=== PATIENT | female | born 1940 | race Caucasian/White ===

== ENCOUNTER 2017-01-30 16:27 | Inpatient (IN) | payer OTHER, MEDICARE ==
[2017-01-30 17:29] VITALS: BMI 32.3
--- NOTE | 2017-01-30 18:59 | CP.PCM.HP ---
History of Present Illness - History of Present Illness History of Present Illness: 76 yo female with history of RA, Osteoporoses and HTN had TKR of the left knee after failing conservative management at [facility] on 01/27/2017. Pt is transferred to acute rehab to continue management and PT Present on Admission - Present on Admission Any Indicators Present on Admission: No History of DVT/PE: No History of Uncontrolled Diabetes: No Urinary Catheter: No Decubitus Ulcer Present: No Review of Systems - Review of Systems All systems: reviewed and no additional remarkable complaints except (aside from those mentioned above, 12 point system review were negative by me) Past Patient History - Past Social History Smoking Status: Never Smoked Chewing Tobacco Use: No Cigar Use: No Alcohol: None Drugs: Denies - CARDIAC Hx Hypertension: Yes - PULMONARY Hx Respiratory Disorders: No - NEUROLOGICAL Hx Neurological Disorder: No - HEENT Hx HEENT Problems: No - RENAL Hx Chronic Kidney Disease: No - ENDOCRINE/METABOLIC Hx Endocrine Disorders: No - HEMATOLOGICAL/ONCOLOGICAL Hx Blood Disorders: No - INTEGUMENTARY Hx Dermatological Problems: No - MUSCULOSKELETAL/RHEUMATOLOGICAL Hx Arthritis: Yes Hx Degenerative Joint Disease: Yes Hx Osteoarthritis: Yes Hx Osteoporosis: Yes Hx Rheumatoid Arthritis: Yes - GASTROINTESTINAL Hx Gastrointestinal Disorders: No - GENITOURINARY/GYNECOLOGICAL Hx Genitourinary Disorders: No - PSYCHIATRIC Hx Psychophysiologic Disorder: No - SURGICAL HISTORY Hx Orthopedic Surgery: Yes (right TKR, last year) - ANESTHESIA Hx Anesthesia: Yes Hx Anesthesia Reactions: No Meds Allergies/Adverse Reactions: Allergies Allergy/AdvReac Type Severity Reaction Status Date / Time No Known Allergies Allergy Verified 12/24/15 07:54 Physical Exam - Constitutional Appears: No Acute Distress - Head Exam Head Exam: ATRAUMATIC - Eye Exam Eye Exam: absent: Scleral icterus - ENT Exam ENT Exam: Mucous Membranes Moist - Neck Exam Neck exam: Negative for: Meningismus - Respiratory Exam Respiratory Exam: absent: Rhonchi, Wheezes, Respiratory Distress - Cardiovascular Exam Cardiovascular Exam: REGULAR RHYTHM, +S1, +S2 - GI/Abdominal Exam GI & Abdominal Exam: Soft. absent: Tenderness - Rectal Exam Rectal Exam: Deferred - Extremities Exam Extremities exam: Negative for: full ROM (left knee post TKR) - Neurological Exam Neurological exam: Alert, Oriented x3 - Psychiatric Exam Psychiatric exam: Normal Affect - Skin Skin Exam: Dry, Intact Assessment & Plan (1) Status post total knee replacement, left Status: Acute Comment: admit to subacute rehab. refer to PT/OT. pain management. orthopedist prefer ASA 325mg PO daily for prophylaxis (2) HTN (hypertension) Status: Acute Comment: BP stable. continue HCTZ, Losartan
[2017-01-30] MEDS ORDERED: [UNRECOGNIZED DRUG - OTHER] PO SCH (19:30)
[2017-01-30] MEDS ORDERED: CALCIUM PO SCH (19:30)
[2017-01-30] MEDS ORDERED: VIT B12 PO SCH (19:30)
[2017-01-30] MEDS ORDERED: PYRIDOXINE PO SCH (19:30)
[2017-01-30] MEDS: oxyCODONE 10 mg ER Tab (oxyCONTIN) PO SCH (22:14)
[2017-01-31 07:40] LABS: BASO # 0.1 K/uL (0.0-0.2); BASO % 0.8 % (0.0-2.0); EOS # 0.2 K/uL (0.0-0.7); EOS % 1.3 % (0.0-4.0); HEMATOCRIT 36.8 % (34.0-47.0); LYMPH # 1.6 K/uL (1.0-4.3); LYMPH % 10.7 % (20.0-40.0); MEAN CELL VOLUME 87.9 fl (81.0-99.0); MEAN CORPUSCULAR HEMOGLOBIN 28.8 pg (27.0-31.0); MEAN CORPUSCULAR HGB CONC 32.8 g/dL (33.0-37.0); MEAN PLATELET VOLUME 9.8 fl (7.2-11.7); MONO # 1.1 K/uL (0.0-0.8); MONO % 7.6 % (0.0-10.0); NEUT % 79.6 % (50.0-75.0); NRBC % 0.1 % (0.0-0.0); RED CELL DISTRIBUTION WIDTH 13.4 % (11.5-14.5)
[2017-01-31 08:10] LABS: BLOOD UREA NITROGEN 10 mg/dl (7-17); CALCIUM 8.9 mg/dL (8.4-10.2); CARBON DIOXIDE 25 mmol/L (22-30); CHLORIDE 102 mmol/L (98-107); GFR AFRICAN-AMERICAN > 60; GLUCOSE,RANDOM 106 mg/dL (65-105); POTASSIUM 3.3 MMOL/L (3.6-5.0); SODIUM 143 mmol/l (132-148)
[2017-01-31] MEDS: oxyCODONE 10 mg ER Tab (oxyCONTIN) PO SCH ×2 (09:00→21:28)
[2017-01-31] MEDS: Pantoprazole 40 mg EC Tab PO SCH (09:03)
[2017-01-31] MEDS: Multivitamin With Minerals Tab PO SCH (09:03)
--- NOTE | 2017-01-31 11:23 | CP.PCM.PN ---
Subjective - Date & Time of Evaluation Date of Evaluation: 01/31/17 Time of Evaluation: 11:22 - Subjective Subjective: left TKR revision Objective - Vital Signs/Intake and Output Vital Signs (last 24 hours): Temp Pulse Resp BP Pulse Ox 97.3 F L 81 18 174/74 H 96 01/31/17 07:27 01/31/17 09:03 01/31/17 07:27 01/31/17 09:03 01/31/17 07:27 - Medications Medications: Current Medications Acetaminophen (Tylenol 325mg Tab) 325 mg PO PRN PRN PRN Reason: for pain Ascorbic Acid (Vitamin C 500 Mg Tab) 500 mg PO ONCE [facility] Aspirin (Aspirin) 325 mg PO DAILY [facility] Last Admin: 01/31/17 09:06 Dose: 325 mg Celecoxib (Celebrex) 200 mg PO DAILY [facility] Last Admin: 01/31/17 09:03 Dose: 200 mg Docusate Sodium (Colace) 100 mg PO TID [facility] Last Admin: 01/31/17 09:02 Dose: 100 mg Gabapentin (Neurontin) 300 mg PO BIDPC [facility] Last Admin: 01/31/17 09:03 Dose: 300 mg Home Med (Calcium/Vit B12/Fa/Pyridoxine [Folic Acid-Vit B6-Vit B12 Tab]) 1 each PO ONCE [facility] Hydrochlorothiazide (Microzide) 12.5 mg PO DAILY [facility] Last Admin: 01/31/17 09:03 Dose: 12.5 mg Losartan Potassium (Cozaar) 50 mg PO DAILY [facility] Last Admin: 01/31/17 09:03 Dose: 50 mg Multivitamins/Minerals (Therapeutic-M Tab) 1 tab PO DAILY [facility] Last Admin: 01/31/17 09:03 Dose: 1 tab Oxycodone HCl (Oxycontin Extended Release Tab) 10 mg PO Q12 [facility] Stop: 02/02/17 21:01 Last Admin: 01/31/17 09:00 Dose: 10 mg Pantoprazole Sodium (Protonix Ec Tab) 40 mg PO DAILY [facility] Last Admin: 01/31/17 09:03 Dose: 40 mg Sennosides (Senokot Tab) 8.6 mg PO ACHS [facility] Last Admin: 01/31/17 06:32 Dose: 8.6 mg - Labs Labs: 01/31/17 05:30 01/31/17 05:30 Physiatry Overall Plan of Care - Overall Plan of Care Estimated Length of Stay in Weeks: 2 Rehab Impairment: Mobility, Gait, Balance, Coordination Etiologic Diagnosis: Hip/Knee Surgery Rehab/Medical Prognosis: Fair - Anticipated Interventions Physical Therapy:: Yes Occupational Therapy:: Yes Speech Therapy:: No Recreational Therapy:: Yes - Therapy Goals Bed Mobility: Supervision Ambulation: Supervision Functional Positional Changes:: Supervision - Discharge Plan Identification of Barriers to Discharge: Home Situation Discharge Destination: Home
--- NOTE | 2017-01-31 11:25 | CP.PCM.CON ---
History of Present Illness - History of Present Illness History of Present Illness: Dr Alvarado coverage for Dr Archibald PMR consultation on Sarah Lagunas, born 1940, who has been admitted to [facility] for acute inpatient rehabilitation following a left TKR revision. She has also undergone a right TKR revision in April 2016. Post op stable Low pain tolerance Review of Systems - Constitutional Constitutional: absent: Anorexia, Chills - EENT Ears: absent: Disequilibrium, Dizziness Nose/Mouth/Throat: absent: Nasal Congestion - Cardiovascular Cardiovascular: absent: Chest Pain - Respiratory Respiratory: absent: Dyspnea - Gastrointestinal Gastrointestinal: absent: Belching, Constipation - Musculoskeletal Musculoskeletal: Stiffness. absent: Back Pain, Neck Pain, Numbness, Radiating Pain into Limb - Integumentary Integumentary: Other (left knee incision) - Psychiatric Psychiatric: Anxiety Past Patient History - Past Social History Smoking Status: Never Smoked Chewing Tobacco Use: No Cigar Use: No Alcohol: None Drugs: Denies Home Situation {Lives}: Alone - CARDIAC Hx Hypertension: Yes - PULMONARY Hx Respiratory Disorders: No - NEUROLOGICAL Hx Neurological Disorder: No - HEENT Hx HEENT Problems: No - RENAL Hx Chronic Kidney Disease: No - ENDOCRINE/METABOLIC Hx Endocrine Disorders: No - HEMATOLOGICAL/ONCOLOGICAL Hx Blood Disorders: No - INTEGUMENTARY Hx Dermatological Problems: No - MUSCULOSKELETAL/RHEUMATOLOGICAL Hx Arthritis: Yes Hx Degenerative Joint Disease: Yes Hx Osteoarthritis: Yes Hx Osteoporosis: Yes Hx Rheumatoid Arthritis: Yes - GASTROINTESTINAL Hx Gastrointestinal Disorders: No - GENITOURINARY/GYNECOLOGICAL Hx Genitourinary Disorders: No - PSYCHIATRIC Hx Psychophysiologic Disorder: No - SURGICAL HISTORY Hx Orthopedic Surgery: Yes (right TKR, last year) - ANESTHESIA Hx Anesthesia: Yes Hx Anesthesia Reactions: No Meds Allergies/Adverse Reactions: Allergies Allergy/AdvReac Type Severity Reaction Status Date / Time No Known Allergies Allergy Verified 12/24/15 07:54 - Medications Medications: Current Medications Acetaminophen (Tylenol 325mg Tab) 325 mg PO PRN PRN PRN Reason: for pain Ascorbic Acid (Vitamin C 500 Mg Tab) 500 mg PO ONCE [facility] Aspirin (Aspirin) 325 mg PO DAILY [facility] Last Admin: 01/31/17 09:06 Dose: 325 mg Celecoxib (Celebrex) 200 mg PO DAILY [facility] Last Admin: 01/31/17 09:03 Dose: 200 mg Docusate Sodium (Colace) 100 mg PO TID [facility] Last Admin: 01/31/17 09:02 Dose: 100 mg Gabapentin (Neurontin) 300 mg PO BIDPC [facility] Last Admin: 01/31/17 09:03 Dose: 300 mg Home Med (Calcium/Vit B12/Fa/Pyridoxine [Folic Acid-Vit B6-Vit B12 Tab]) 1 each PO ONCE [facility] Hydrochlorothiazide (Microzide) 12.5 mg PO DAILY [facility] Last Admin: 01/31/17 09:03 Dose: 12.5 mg Losartan Potassium (Cozaar) 50 mg PO DAILY [facility] Last Admin: 01/31/17 09:03 Dose: 50 mg Multivitamins/Minerals (Therapeutic-M Tab) 1 tab PO DAILY [facility] Last Admin: 01/31/17 09:03 Dose: 1 tab Oxycodone HCl (Oxycontin Extended Release Tab) 10 mg PO Q12 [facility] Stop: 02/02/17 21:01 Last Admin: 01/31/17 09:00 Dose: 10 mg Pantoprazole Sodium (Protonix Ec Tab) 40 mg PO DAILY [facility] Last Admin: 01/31/17 09:03 Dose: 40 mg Sennosides (Senokot Tab) 8.6 mg PO ACHS [facility] Last Admin: 01/31/17 06:32 Dose: 8.6 mg Physical Exam - Constitutional Appears: Non-toxic, No Acute Distress - Head Exam Head Exam: ATRAUMATIC, NORMAL INSPECTION, NORMOCEPHALIC - Eye Exam Eye Exam: EOMI, Normal appearance - ENT Exam ENT Exam: Mucous Membranes Moist - Respiratory Exam Respiratory Exam: NORMAL BREATHING PATTERN - Cardiovascular Exam Cardiovascular Exam: REGULAR RHYTHM - GI/Abdominal Exam GI & Abdominal Exam: Normal Bowel Sounds - Extremities Exam Extremities exam: Negative for: calf tenderness, full ROM (reduced ROM left knee , very apprehensive to do PROM) - Neurological Exam Neurological exam: Alert, CN II-XII Intact, Oriented x3 - Psychiatric Exam Psychiatric exam: Anxious - Skin Skin Exam: Warm Results - Vital Signs Recent Vital Signs: Last Vital Signs Temp 97.3 F L 01/31/17 07:27 Pulse 81 01/31/17 09:03 Resp 18 01/31/17 07:27 BP 174/74 H 01/31/17 09:03 Pulse Ox 96 01/31/17 07:27 - Labs Result Diagrams: 01/31/17 05:30 01/31/17 05:30 Labs: Laboratory Results - last 24 hr 01/31/17 05:30 WBC 15.0 H RBC 4.18 Hgb 12.1 Hct 36.8 MCV 87.9 MCH 28.8 MCHC 32.8 L RDW 13.4 Plt Count 202 MPV 9.8 Neut % (Auto) 79.6 H Lymph % (Auto) 10.7 L Harper % (Auto) 7.6 Eos % (Auto) 1.3 Baso % (Auto) 0.8 Neut # 12.0 H Lymph # 1.6 Harper # 1.1 H Eos # 0.2 Baso # 0.1 Sodium 143 Potassium 3.3 L Chloride 102 Carbon Dioxide 25 Anion Gap 19 BUN 10 Creatinine 0.5 L Est GFR ( Amer) > 60 Est GFR (Non-Af Amer) > 60 Random Glucose 106 H Calcium 8.9 Assessment & Plan - Assessment and Plan (Free Text) Assessment: left TKR revision old right TKR revision lives alone, this may be an issue on d/c PT/OT to continue to help increase functional independence Team conference for d/c planning Pain: controlled Vascular: no evidence of DVT GI: No evidence of constipation or diarrhea Patient is an excellent acute rehabilitation candidate and will have focused pain management, wound care, PT, OT and recreational therapy to help facilitate a safe and appropriate d/c plan impairment code 08.9
[2017-01-31] MEDS ORDERED: Povidone Iodine Topical 10% Sol TOP ONE (18:02)
[2017-02-01] MEDS: Pantoprazole 40 mg EC Tab PO SCH (09:07)
[2017-02-01] MEDS: Multivitamin With Minerals Tab PO SCH (09:07)
[2017-02-01] MEDS: oxyCODONE 10 mg ER Tab (oxyCONTIN) PO SCH ×2 (09:07→21:25)
[2017-02-01] MEDS: Povidone Iodine Topical 10% Sol TOP SCH (09:17)
[2017-02-02] MEDS: oxyCODONE 10 mg ER Tab (oxyCONTIN) PO SCH ×2 (08:37→21:47)
[2017-02-02] MEDS: Multivitamin With Minerals Tab PO SCH (08:39)
[2017-02-02] MEDS: Pantoprazole 40 mg EC Tab PO SCH (08:41)
[2017-02-02] MEDS: Povidone Iodine Topical 10% Sol TOP SCH (08:41)
--- NOTE | 2017-02-02 15:37 | CP.PCM.PN ---
Subjective - Date & Time of Evaluation Date of Evaluation: 02/02/17 Time of Evaluation: 15:34 - Subjective Subjective: Patient seen in gym doing well but reduced left knee ROM and not too inclined to tolerate pain with aggressive ROM feels some head stuffiness palpation on sinuses did not lead to pain she is denying any visual changes or yokasta headaches no tinnitus either I will get ENT consult Objective - Vital Signs/Intake and Output Vital Signs (last 24 hours): Temp Pulse Resp BP Pulse Ox 98.0 F 82 21 119/54 L 97 02/02/17 08:53 02/02/17 08:53 02/02/17 08:53 02/02/17 08:53 02/02/17 08:53 - Medications Medications: Current Medications Acetaminophen (Tylenol 325mg Tab) 650 mg PO Q6 PRN PRN Reason: Pain, severe (8-10) Acetaminophen (Tylenol 325mg Tab) 325 mg PO Q6 PRN PRN Reason: Pain, moderate (4-7) Ascorbic Acid (Vitamin C 500 Mg Tab) 500 mg PO ONCE [facility] Aspirin (Aspirin) 325 mg PO DAILY [facility] Last Admin: 02/02/17 09:40 Dose: 325 mg Celecoxib (Celebrex) 200 mg PO DAILY [facility] Last Admin: 02/02/17 08:39 Dose: 200 mg Docusate Sodium (Colace) 100 mg PO TID [facility] Last Admin: 02/02/17 13:15 Dose: 100 mg Gabapentin (Neurontin) 300 mg PO BIDPC [facility] Last Admin: 02/02/17 08:40 Dose: 300 mg Home Med (Calcium/Vit B12/Fa/Pyridoxine [Folic Acid-Vit B6-Vit B12 Tab]) 1 each PO ONCE [facility] Hydrochlorothiazide (Microzide) 12.5 mg PO DAILY [facility] Last Admin: 02/02/17 08:40 Dose: 12.5 mg Losartan Potassium (Cozaar) 50 mg PO DAILY [facility] Last Admin: 02/02/17 08:39 Dose: 50 mg Multivitamins/Minerals (Therapeutic-M Tab) 1 tab PO DAILY [facility] Last Admin: 02/02/17 08:39 Dose: 1 tab Oxycodone HCl (Oxycontin Extended Release Tab) 10 mg PO Q12 [facility] Stop: 02/02/17 21:01 Last Admin: 02/02/17 08:37 Dose: 10 mg Pantoprazole Sodium (Protonix Ec Tab) 40 mg PO DAILY [facility] Last Admin: 02/02/17 08:41 Dose: 40 mg Povidone Iodine (Betadine 10% Topical Soln) 1 ml TOP DAILY [facility] Last Admin: 02/02/17 08:41 Dose: 1 applic Sennosides (Senokot Tab) 17.2 mg PO HS [facility] - Labs Labs: 01/31/17 05:30 01/31/17 05:30
--- NOTE | 2017-02-02 17:58 | CP.PCM.PN ---
Subjective - Date & Time of Evaluation Date of Evaluation: 02/02/17 Time of Evaluation: 17:45 - Subjective Subjective: Hospitalist Progress Note (Patient was seen and examined at 5:45 PM 02/02/17 630- 1) 76 yo female with history of RA, Osteoporoses and HTN had TKR of the left knee after failing conservative management at [facility] on 01/27/2017. Patient was then transferred to the Acute Rehab Unit at [facility] to continue management and PT/OT. ROS: Right Pain (ENT a few months ago provided unspecified drops that mad the pain go away) Right Hand Finger tips numbness that comes and goes (chronic many years) Left Knee Pain that is controlled Last bowel movement 02/01/17 NO other complaints Exam: HEENT: NCA, EOMI, PERRLA, NO cervical lymphadenopathy, NO thyromegaly, NO Pharyngeal erythema/exudate, Oral Mucosa and Nasal Turbinates are moist, Bilateral TM are intact but sclerotic and without good light reflex and they are not bulging/not erythematous Cardiology: NS1 and NS2, NO M/R/G Respiratory: CTA B/L, NO R/R/W GI: BSx4, Soft, NT, ND, NO HSM, NO guarding/rebound tenderness Ext: Pulses are strong and equal, Capillary Refill is 2 seconds, NO edema, Able to move toes of bilateral feet with sensation intact, Unable to examine surgical incision on Left Knee as Nurse informed me that Ortho Dr. Hernandez did not want bandages removed Neurology: CN II through XII are grossly intact Assessment and Plan: 1). S/P Left Knee Replacement POD #[address] Hernandez Tylenol 650 mg PO Q6H PRN Severe Pain Tylenol 325 mg PO Q6H PRN Moderate Pain Celebrex 200 mg PO 1x/day Neurontin 300 mg PO 2x/day Oxycodone XR 10 mg PO Q12H 2). Hx HTN HCTZ 12. 5 mg PO 1x/day Cozaar 50 mg PO 1x/day 3). Prophylactic Measure Vitamin C 500 mg PO 1x/day Colace 100 mg PO TID [facility] 1 tab P:O 1x/day Protonix 40 mg PO 1x/day Senokot 17.2 mg PO QHS Objective - Vital Signs/Intake and Output Vital Signs (last 24 hours): Temp Pulse Resp BP Pulse Ox 96.0 F L 66 20 89/58 L 95 02/02/17 16:18 02/02/17 16:18 02/02/17 16:18 02/02/17 16:18 02/02/17 16:18 - Medications Medications: Current Medications Acetaminophen (Tylenol 325mg Tab) 650 mg PO Q6 PRN PRN Reason: Pain, severe (8-10) Acetaminophen (Tylenol 325mg Tab) 325 mg PO Q6 PRN PRN Reason: Pain, moderate (4-7) Ascorbic Acid (Vitamin C 500 Mg Tab) 500 mg PO ONCE [facility] Aspirin (Aspirin) 325 mg PO DAILY [facility] Last Admin: 02/02/17 09:40 Dose: 325 mg Celecoxib (Celebrex) 200 mg PO DAILY [facility] Last Admin: 02/02/17 08:39 Dose: 200 mg Docusate Sodium (Colace) 100 mg PO TID [facility] Last Admin: 02/02/17 17:04 Dose: 100 mg Gabapentin (Neurontin) 300 mg PO BIDPC [facility] Last Admin: 02/02/17 17:03 Dose: 300 mg Home Med (Calcium/Vit B12/Fa/Pyridoxine [Folic Acid-Vit B6-Vit B12 Tab]) 1 each PO ONCE [facility] Hydrochlorothiazide (Microzide) 12.5 mg PO DAILY [facility] Last Admin: 02/02/17 08:40 Dose: 12.5 mg Losartan Potassium (Cozaar) 50 mg PO DAILY [facility] Last Admin: 02/02/17 08:39 Dose: 50 mg Multivitamins/Minerals (Therapeutic-M Tab) 1 tab PO DAILY [facility] Last Admin: 02/02/17 08:39 Dose: 1 tab Oxycodone HCl (Oxycontin Extended Release Tab) 10 mg PO Q12 [facility] Stop: 02/02/17 21:01 Last Admin: 02/02/17 08:37 Dose: 10 mg Pantoprazole Sodium (Protonix Ec Tab) 40 mg PO DAILY [facility] Last Admin: 02/02/17 08:41 Dose: 40 mg Povidone Iodine (Betadine 10% Topical Soln) 1 ml TOP DAILY [facility] Last Admin: 02/02/17 08:41 Dose: 1 applic Sennosides (Senokot Tab) 17.2 mg PO HS [facility] - Labs Labs: 01/31/17 05:30 01/31/17 05:30
[2017-02-03 06:18] LABS: BASO # 0.1 K/uL (0.0-0.2); BASO % 0.8 % (0.0-2.0); EOS # 0.4 K/uL (0.0-0.7); EOS % 3.3 % (0.0-4.0); HEMATOCRIT 34.2 % (34.0-47.0); LYMPH # 2.2 K/uL (1.0-4.3); LYMPH % 19.6 % (20.0-40.0); MEAN CELL VOLUME 88.7 fl (81.0-99.0); MEAN CORPUSCULAR HEMOGLOBIN 29.5 pg (27.0-31.0); MEAN CORPUSCULAR HGB CONC 33.3 g/dL (33.0-37.0); MEAN PLATELET VOLUME 8.9 fl (7.2-11.7); MONO # 1.2 K/uL (0.0-0.8); MONO % 10.8 % (0.0-10.0); NEUT # 7.5 K/uL (1.8-7.0); NEUT % 65.5 % (50.0-75.0); NRBC % 0.1 % (0.0-0.0); RED CELL DISTRIBUTION WIDTH 13.6 % (11.5-14.5); WHITE BLOOD COUNT 11.5 K/uL (4.8-10.8)
[2017-02-03 06:25] LABS: ALB/GLOB RATIO 0.9 (1.0-2.1); ALKALINE PHOSPHATASE 96 U/L (38-126); ALT/SGPT 35 U/L (9-52); AST/SGOT 37 U/L (14-36); BILIRUBIN,TOTAL 0.6 mg/dl (0.2-1.3); BLOOD UREA NITROGEN 21 mg/dl (7-17); CALCIUM 8.8 mg/dL (8.4-10.2); CARBON DIOXIDE 27 mmol/L (22-30); CHLORIDE 101 mmol/L (98-107); GFR AFRICAN-AMERICAN > 60; GLUCOSE,RANDOM 103 mg/dL (65-105); MAGNESIUM 2.2 MG/DL (1.6-2.3); PHOSPHOROUS 3.8 mg/dl (2.5-4.5); POTASSIUM 4.1 MMOL/L (3.6-5.0); SODIUM 136 mmol/l (132-148); TOTAL PROTEIN 6.8 G/DL (6.3-8.2)
[2017-02-03] MEDS: oxyCODONE 10 mg ER Tab (oxyCONTIN) PO SCH ×2 (08:30→20:29)
[2017-02-03] MEDS: Pantoprazole 40 mg EC Tab PO SCH (08:32)
[2017-02-03] MEDS: Multivitamin With Minerals Tab PO SCH (08:32)
[2017-02-03] MEDS: Povidone Iodine Topical 10% Sol TOP SCH (08:32)
--- NOTE | 2017-02-03 12:11 | CP.PCM.PN ---
Subjective - Date & Time of Evaluation Date of Evaluation: 02/03/17 Time of Evaluation: 11:00 - Subjective Subjective: patient with mild knee pain Objective - Vital Signs/Intake and Output Vital Signs (last 24 hours): Temp Pulse Resp BP Pulse Ox 97 F L 74 20 130/42 L 97 02/03/17 09:14 02/03/17 09:14 02/03/17 09:14 02/03/17 09:14 02/03/17 09:14 - Medications Medications: Current Medications Acetaminophen (Tylenol 325mg Tab) 650 mg PO Q6 PRN PRN Reason: Pain, severe (8-10) Acetaminophen (Tylenol 325mg Tab) 325 mg PO Q6 PRN PRN Reason: Pain, moderate (4-7) Last Admin: 02/03/17 04:51 Dose: 325 mg Ascorbic Acid (Vitamin C 500 Mg Tab) 500 mg PO ONCE [facility] Aspirin (Aspirin) 325 mg PO DAILY [facility] Last Admin: 02/03/17 08:37 Dose: 325 mg Celecoxib (Celebrex) 200 mg PO DAILY [facility] Last Admin: 02/03/17 08:32 Dose: 200 mg Docusate Sodium (Colace) 100 mg PO TID [facility] Last Admin: 02/03/17 08:32 Dose: 100 mg Gabapentin (Neurontin) 300 mg PO BIDPC [facility] Last Admin: 02/03/17 08:32 Dose: 300 mg Home Med (Calcium/Vit B12/Fa/Pyridoxine [Folic Acid-Vit B6-Vit B12 Tab]) 1 each PO ONCE [facility] Hydrochlorothiazide (Microzide) 12.5 mg PO DAILY [facility] Last Admin: 02/03/17 08:32 Dose: 12.5 mg Losartan Potassium (Cozaar) 50 mg PO DAILY [facility] Last Admin: 02/03/17 08:32 Dose: 50 mg Multivitamins/Minerals (Therapeutic-M Tab) 1 tab PO DAILY [facility] Last Admin: 02/03/17 08:32 Dose: 1 tab Oxycodone HCl (Oxycontin Extended Release Tab) 10 mg PO Q12 [facility] Stop: 02/05/17 21:01 Last Admin: 02/03/17 08:30 Dose: 10 mg Pantoprazole Sodium (Protonix Ec Tab) 40 mg PO DAILY [facility] Last Admin: 02/03/17 08:32 Dose: 40 mg Povidone Iodine (Betadine 10% Topical Soln) 1 ml TOP DAILY [facility] Last Admin: 02/03/17 08:32 Dose: 1 applic Sennosides (Senokot Tab) 17.2 mg PO HS [facility] Last Admin: 02/02/17 21:47 Dose: 17.2 mg - Labs Labs: 02/03/17 05:00 02/03/17 05:00 - Head Exam Head Exam: ATRAUMATIC, NORMAL INSPECTION, NORMOCEPHALIC - Eye Exam Eye Exam: EOMI, Normal appearance, PERRL Pupil Exam: NORMAL ACCOMODATION - ENT Exam ENT Exam: Mucous Membranes Moist, Normal Exam - Respiratory Exam Respiratory Exam: NORMAL BREATHING PATTERN - Cardiovascular Exam Cardiovascular Exam: REGULAR RHYTHM - GI/Abdominal Exam GI & Abdominal Exam: Normal Bowel Sounds - Rectal Exam Rectal Exam: NORMAL INSPECTION - Exam External exam: NORMAL EXTERNAL EXAM - Extremities Exam Extremities Exam: Normal Capillary Refill, Normal Inspection - Neurological Exam Neurological Exam: Alert, Awake Neuro motor strength exam: Left Upper Extremity: 3, Right Upper Extremity: 4, Left Lower Extremity: 3, Right Lower Extremity: 4 - Psychiatric Exam Psychiatric exam: Normal Affect, Normal Mood - Skin Skin Exam: Dry, Intact Assessment and Plan (1) HTN (hypertension) Status: Acute (2) Status post total knee replacement, left Status: Acute - Assessment and Plan (Free Text) Assessment: plan for physical, occupational, rec therapy
--- NOTE | 2017-02-04 07:00 | CON ---
DATE: 02/03/2017 REASON FOR CONSULTATION: Right ear pain. HISTORY OF PRESENT ILLNESS: This is a 76-year-old female who complains of a 2-day history of right e ar pain. It is [id number] in intensity, on and off. No hearing loss, no ringing. PAST MEDICAL HISTORY: As noted on the chart by me. MEDICATIONS: As noted on the chart by me. PHYSICAL EXAMINATION: HEAD: Atraumatic, normocephalic. There is pain on the TMJ on both sides when the patient opens and closes her mouth. FACE: Good facial movements bilaterally. CONSTITUTIONAL: Well-developed, well-nourished. COMMUNICATION: Communicates very appropriately. EXTERNAL NOSE AND EARS: No masses, no lesions, no erythema, no edema. INTERNAL NOSE: Deviated septum, no masses, no lesions, no erythema, no edema. EARS: TM intact. No fluid behind them on both sides. No ear canal edema or discharge. ORAL CAVITY AND OROPHARYNX: No masses, no lesions, no erythema, no edema. LIPS AND GUMS: No masses, no lesions, no erythema, no edema. NECK: Supple. THYROID: No thyromegaly, no goiter. LYMPH NODES: No lymphadenopathy of the neck. ASSESSMENT: 1. Deviated septum. 2. Ear pain. 3. Temporomandibular joint. PLAN: Recommend a soft mechanical diet and warm compresses to face. No chewing. The patient to fol low up in the office as an outpatient. Han Stauffer MD cc: [id number] TT: 02/03/2017 12:43:51 Confirmation # [id number] Dictation # [id number] 02/03/2017 20:30:10
[2017-02-04] MEDS: Multivitamin With Minerals Tab PO SCH (08:51)
[2017-02-04] MEDS: oxyCODONE 10 mg ER Tab (oxyCONTIN) PO SCH ×2 (08:52→20:27)
[2017-02-04] MEDS: Povidone Iodine Topical 10% Sol TOP SCH (08:52)
[2017-02-04] MEDS: Pantoprazole 40 mg EC Tab PO SCH (08:52)
--- NOTE | 2017-02-04 12:27 | PSY.TMCNF ---
Nursing - Vital Signs Vital Signs (Last 8 hours): Vital Signs 02/04/17 08:52 Temperature 97.7 F Pulse Rate 76 Respiratory 20 Rate Blood Pressure 132/58 L O2 Sat by Pulse 100 Oximetry Pain: 4 - Medications/Other Issues Comment: Pt at low nutritional risk. no goals. Follow-up due on 02/10/2017 - Skin Incision Site: Left knee Dressing Status: Clean, Dry, Intact Incision Line Treatment: Maintain aquacel dressing until seen by Dr. Hernandez - Bladder Management Bladder Pattern: Normal Voiding Method: Toilet - Bowel Management Bowel Pattern: Constipated - Goals/Time Frame Comments: Pt was seen awake and alert sitting in her wheelchair in her room. Pt' s preferred language is french and received translation with certified phlebotomist supervisor/instructor present. Pt stated that she would like to be called "Delia" throughout stay. Pt was able to identify her leisure interests such as reading, watching television, and spending time with her two friends. Pt c/o pressure in head and ear, RN aware of pt's concerns. Pt stated that she will attend activities if interested. Pt's mood was stable-positive during visit. Physical Therapy - Bed Mobility Bed Mobility: Verbal Cues, Minimal Assistance, Moderate Assistance Comment: greater difficulty w/ supine to sit but also has difficulty advancing RLE (sound side) during sit to supine - Transfers Wheelchair to Mat: Verbal Cues, Contact Guard, Minimal Assistance Sit to Stand: Supervision, Verbal Cues Comment: sit to stand CS. pt needs vc for safety and sequencing w/ all t/f - Ambulation Level of Assistance: Supervision, Verbal Cues, Contact Guard Distance (ft.): 250 Assistive Devices: Rolling Walker Comment: x2, 150' x 2 CG/CS. vc for upright posture, to stay inside RW, B heel strike (L >R), incr B step length (L > R), incr L knee flex during swing. Fair carryover w/ constant vc/tc greatest difficulty w/ L knee flex and upright posture. Pt also w/ difficulty w/ turns and obstacles - Stair Negotiation Stairs: Level of Assistance: Verbal Cues, Minimal Assistance Number of Stairs: 4 Stairs: Assistive Devices: Left Handrail, Right Handrail Comment: 6 in, step to pattern. min tc, mod vc for sequencing and to incr L knee flex during asc - Standing Balance Static Stand: Contact Guard Assist Dynamic Stand: Minimal Assistance Comment: w/ RW - Pain Management Techniques: Medication, Ice, Position Change, Distraction, Inactivity - Insight/Carryover Insight/Carryover: Fair - Patient/Family Education Comment: rehab goals, POC, safety, fxnl mob, DME. deleterious effects of bed rest, TKR Rev related topics, pain/edema mgmt - Assessment/Plan Assessment: 76 yo female admitted to [facility] acute rehab unit s/p L TKR Rev. Pt presents w/ intermittent lethargy, pain, edema and impaired strength, ROM, balance, sensation, activity tolerance, and fxnl mob. Skilled PT recommended to address deficits. Pt is making greater progress w/ fxnl mob than L knee ROM. Pt's pain tolerance and possible anxiety are limiting factors. - Goals Timeframe: 1 week Goals: AROM 0 to 90. PROM 0 to 90. RW 200' mod I. sit to stand mod I. stand pivot mod I. bed mob mod I - Provider Therapist: Kylah Kirk PT, DPT License Number: [id number] Occupational Therapy - Arousal/Attention/Orientation Patient Orientation: Person, Place, Time, Appropriate to Age - ADL/IADL Self Feeding: Independent Grooming: Modified Independent Bathing-Upper Extremity: Supervision, Verbal Cues, Set-up Help Bathing-Lower Extremity: Contact Guard Dressing-Upper Extremity: Supervision, Verbal Cues, Set-up Help Dressing-Lower Extremity: Supervision, Verbal Cues, Set-up Help Comment: Pt utilizes AE for LBD (central station operator, sock aide) - Sitting Balance Static Sitting: Independent without upper extremity support Dynamic Sitting: Reaches across midline, Reaches out of base of support, Reaches within base of support, Requires supervision - Transfers Wheelchair to Bed Transfers: Supervision, Verbal Cues, Set-up Help Toilet Transfers: Supervision, Verbal Cues, Set-up Help Tub Transfers: Not Applicable Comment: CGA for fxnl amb transfers to/from shower chair in stall shower. Pt has shower chair in the home. Pt utilized RW for all fxnl amb transfers. - Upper Extremity Status Right Upper Extremity Comment: AROM WFL Left Upper Extremity Comment: Decreased shoulder flexion and ER ROM due to old fall inury. - Pain Alleviating Techniques: Medication, Ice, Position Change, Distraction, Inactivity - Insight/Carryover Insight/Carryover: Fair - Patient/Family Education Comment: rehab goals, POC, safety, fxnl mob, DME. deleterious effects of bed rest, TKR Rev related topics, pain/edema mgmt - Assessment/Plan Assessment: 76 yo female admitted to [facility] acute rehab unit s/p L TKR Rev. Pt presents w/ intermittent lethargy, pain, edema and impaired strength, ROM, balance, sensation, activity tolerance, and fxnl mob. Skilled PT recommended to address deficits. Pt is making greater progress w/ fxnl mob than L knee ROM. Pt's pain tolerance and possible anxiety are limiting factors. - Goals Timeframe: 1 week Goals: AROM 0 to 90. PROM 0 to 90. RW 200' mod I. sit to stand mod I. stand pivot mod I. bed mob mod I - Provider Therapist: Inna PRABHAKAR License Number: [id number] Speech Therapy - Plan Assessment: 76 yo female admitted to [facility] acute rehab unit s/p L TKR Rev. Pt presents w/ intermittent lethargy, pain, edema and impaired strength, ROM, balance, sensation, activity tolerance, and fxnl mob. Skilled PT recommended to address deficits. Pt is making greater progress w/ fxnl mob than L knee ROM. Pt's pain tolerance and possible anxiety are limiting factors. Recreational Therapy - Participation Participation: Monitors His/Her Own Leisure Time - Attendance Attendance: 3-5 times per week - Activities Leisure Activities: Television - Socialization Level of Socialization: Initiates/interacts freely with care givers and peer - Diversional Time Diversional Time: television, reading - Assessment Assessment/Plan: 76 yo female admitted to [facility] acute rehab unit s/p L TKR Rev. Pt presents w/ intermittent lethargy, pain, edema and impaired strength, ROM, balance, sensation, activity tolerance, and fxnl mob. Skilled PT recommended to address deficits. Pt is making greater progress w/ fxnl mob than L knee ROM. Pt's pain tolerance and possible anxiety are limiting factors. - Provider Therapist: Mesha Perea, [employer]IVER #[id number] Nutrition - Current Diet Current Diet/ Supplement/ Feedings: Heart healthy: 2 gram Na diet - Appetite Percent Meal Consumed: 75-100% - Assessment/Goals/Time Frame Assessment/Goals/Time Frame: Pt at low nutritional risk. no goals. Follow-up due on 02/10/2017 - Provider Provider: Fina Echevarria RD Case Management - Discharge Plan Discharge Plan: Home alone Rehabilitation Plan - Treatment Plan Treatment Plan: Physical Therapy, Occupational Therapy - Discharge Plan Discharge to: Home (Dc 27)
--- NOTE | 2017-02-04 14:47 | CP.PCM.PN ---
Subjective - Date & Time of Evaluation Date of Evaluation: 02/04/17 Time of Evaluation: 12:00 - Subjective Subjective: patient with occasional knee pain Objective - Vital Signs/Intake and Output Vital Signs (last 24 hours): Temp Pulse Resp BP Pulse Ox 97.7 F 76 20 102/50 L 100 02/04/17 13:47 02/04/17 13:47 02/04/17 13:47 02/04/17 13:47 02/04/17 08:52 - Medications Medications: Current Medications Acetaminophen (Tylenol 325mg Tab) 650 mg PO Q6 PRN PRN Reason: Pain, severe (8-10) Last Admin: 02/03/17 15:49 Dose: 650 mg Acetaminophen (Tylenol 325mg Tab) 325 mg PO Q6 PRN PRN Reason: Pain, moderate (4-7) Last Admin: 02/03/17 04:51 Dose: 325 mg Ascorbic Acid (Vitamin C 500 Mg Tab) 500 mg PO ONCE [facility] Aspirin (Aspirin) 325 mg PO DAILY [facility] Last Admin: 02/04/17 08:59 Dose: 325 mg Celecoxib (Celebrex) 200 mg PO DAILY [facility] Last Admin: 02/04/17 08:51 Dose: 200 mg Docusate Sodium (Colace) 100 mg PO TID [facility] Last Admin: 02/04/17 12:52 Dose: 100 mg Gabapentin (Neurontin) 300 mg PO BIDPC [facility] Last Admin: 02/04/17 08:51 Dose: 300 mg Home Med (Calcium/Vit B12/Fa/Pyridoxine [Folic Acid-Vit B6-Vit B12 Tab]) 1 each PO ONCE [facility] Hydrochlorothiazide (Microzide) 12.5 mg PO DAILY [facility] Last Admin: 02/04/17 08:52 Dose: 12.5 mg Losartan Potassium (Cozaar) 50 mg PO DAILY [facility] Last Admin: 02/04/17 08:52 Dose: 50 mg Multivitamins/Minerals (Therapeutic-M Tab) 1 tab PO DAILY [facility] Last Admin: 02/04/17 08:51 Dose: 1 tab Oxycodone HCl (Oxycontin Extended Release Tab) 10 mg PO Q12 [facility] Stop: 02/05/17 21:01 Last Admin: 02/04/17 08:52 Dose: 10 mg Pantoprazole Sodium (Protonix Ec Tab) 40 mg PO DAILY [facility] Last Admin: 02/04/17 08:52 Dose: 40 mg Povidone Iodine (Betadine 10% Topical Soln) 1 ml TOP DAILY [facility] Last Admin: 02/04/17 08:52 Dose: 1 applic Sennosides (Senokot Tab) 17.2 mg PO HS [facility] Last Admin: 02/03/17 21:07 Dose: 17.2 mg - Labs Labs: 02/03/17 05:00 02/03/17 05:00 - Head Exam Head Exam: ATRAUMATIC, NORMAL INSPECTION, NORMOCEPHALIC - Eye Exam Eye Exam: EOMI, Normal appearance, PERRL Pupil Exam: NORMAL ACCOMODATION - ENT Exam ENT Exam: Mucous Membranes Moist, Normal Exam - Respiratory Exam Respiratory Exam: NORMAL BREATHING PATTERN - Cardiovascular Exam Cardiovascular Exam: REGULAR RHYTHM - GI/Abdominal Exam GI & Abdominal Exam: Soft, Normal Bowel Sounds - Rectal Exam Rectal Exam: NORMAL INSPECTION - Exam External exam: NORMAL EXTERNAL EXAM - Extremities Exam Extremities Exam: Normal Capillary Refill, Normal Inspection - Back Exam Back Exam: NORMAL INSPECTION - Neurological Exam Neurological Exam: Alert, Awake Neuro motor strength exam: Left Upper Extremity: 4, Right Upper Extremity: 4, Left Lower Extremity: 3, Right Lower Extremity: 4 - Psychiatric Exam Psychiatric exam: Normal Affect, Normal Mood - Skin Skin Exam: Dry, Intact Assessment and Plan (1) HTN (hypertension) Status: Acute (2) Status post total knee replacement, left Assessment & Plan: need to work on Range of motion, quadriceps strengthing PT and OT therapy discussed team conference with patient with a zambian translater Status: Acute
--- NOTE | 2017-02-04 20:12 | CP.PCM.PN ---
Subjective - Date & Time of Evaluation Date of Evaluation: 02/04/17 Time of Evaluation: 14:45 - Subjective Subjective: Pt seen and examined. Denied any complaint at present. Objective - Vital Signs/Intake and Output Vital Signs (last 24 hours): Temp Pulse Resp BP Pulse Ox 97.7 F 67 20 132/66 98 02/04/17 20:05 02/04/17 20:05 02/04/17 20:05 02/04/17 20:05 02/04/17 20:05 - Medications Medications: Current Medications Acetaminophen (Tylenol 325mg Tab) 650 mg PO Q6 PRN PRN Reason: Pain, severe (8-10) Last Admin: 02/03/17 15:49 Dose: 650 mg Acetaminophen (Tylenol 325mg Tab) 325 mg PO Q6 PRN PRN Reason: Pain, moderate (4-7) Last Admin: 02/03/17 04:51 Dose: 325 mg Ascorbic Acid (Vitamin C 500 Mg Tab) 500 mg PO ONCE [facility] Aspirin (Aspirin) 325 mg PO DAILY [facility] Last Admin: 02/04/17 08:59 Dose: 325 mg Celecoxib (Celebrex) 200 mg PO DAILY [facility] Last Admin: 02/04/17 08:51 Dose: 200 mg Docusate Sodium (Colace) 100 mg PO TID [facility] Last Admin: 02/04/17 17:19 Dose: 100 mg Gabapentin (Neurontin) 300 mg PO BIDPC [facility] Last Admin: 02/04/17 17:19 Dose: 300 mg Home Med (Calcium/Vit B12/Fa/Pyridoxine [Folic Acid-Vit B6-Vit B12 Tab]) 1 each PO ONCE [facility] Hydrochlorothiazide (Microzide) 12.5 mg PO DAILY [facility] Last Admin: 02/04/17 08:52 Dose: 12.5 mg Losartan Potassium (Cozaar) 50 mg PO DAILY [facility] Last Admin: 02/04/17 08:52 Dose: 50 mg Multivitamins/Minerals (Therapeutic-M Tab) 1 tab PO DAILY [facility] Last Admin: 02/04/17 08:51 Dose: 1 tab Oxycodone HCl (Oxycontin Extended Release Tab) 10 mg PO Q12 [facility] Stop: 02/05/17 21:01 Last Admin: 02/04/17 08:52 Dose: 10 mg Pantoprazole Sodium (Protonix Ec Tab) 40 mg PO DAILY [facility] Last Admin: 02/04/17 08:52 Dose: 40 mg Povidone Iodine (Betadine 10% Topical Soln) 1 ml TOP DAILY [facility] Last Admin: 02/04/17 08:52 Dose: 1 applic Sennosides (Senokot Tab) 17.2 mg PO HS [facility] Last Admin: 02/03/17 21:07 Dose: 17.2 mg - Labs Labs: 02/03/17 05:00 02/03/17 05:00 - Constitutional Appears: No Acute Distress - Head Exam Head Exam: ATRAUMATIC - Eye Exam Eye Exam: absent: Scleral icterus - ENT Exam ENT Exam: Mucous Membranes Moist - Neck Exam Neck Exam: absent: Meningismus - Respiratory Exam Respiratory Exam: absent: Rhonchi, Wheezes, Respiratory Distress - Cardiovascular Exam Cardiovascular Exam: REGULAR RHYTHM, +S1, +S2 - GI/Abdominal Exam GI & Abdominal Exam: Soft. absent: Tenderness - Rectal Exam Rectal Exam: Deferred - Extremities Exam Extremities Exam: Joint Swelling (both knees slightly swollen, dressing on left intact and dry) - Neurological Exam Neurological Exam: Alert, Oriented x3 - Psychiatric Exam Psychiatric exam: Normal Affect - Skin Skin Exam: Dry, Intact Assessment and Plan (1) Status post total knee replacement, left Status: Acute (2) HTN (hypertension) Status: Acute - Assessment and Plan (Free Text) Assessment: 76 yo female with history of RA, Osteoporoses and HTN had TKR of the left knee after failing conservative management at [facility] on 01/27/2017. Pt is transferred to acute rehab to continue management and PT (1) Status post total knee replacement, left orthopedist prefer ASA 325mg PO daily for DVT prophylaxis Oxycodone XR 10mg PO q 12hrs Gabapentin 300mg PO BID Celebrex 200mg PO daily continue PT/OT (2) HTN (hypertension) BP stable continue HCTZ and Losartan
[2017-02-05] MEDS: oxyCODONE 10 mg ER Tab (oxyCONTIN) PO SCH ×2 (08:02→20:07)
[2017-02-05] MEDS: Povidone Iodine Topical 10% Sol TOP SCH (08:03)
[2017-02-05] MEDS: Multivitamin With Minerals Tab PO SCH (08:04)
[2017-02-05] MEDS: Pantoprazole 40 mg EC Tab PO SCH (08:04)
[2017-02-06] MEDS: Povidone Iodine Topical 10% Sol TOP SCH (08:49)
[2017-02-06] MEDS: Multivitamin With Minerals Tab PO SCH (08:51)
[2017-02-06] MEDS: Pantoprazole 40 mg EC Tab PO SCH (08:51)
[2017-02-06] MEDS: oxyCODONE 10 mg ER Tab (oxyCONTIN) PO SCH ×2 (08:57→21:28)
--- NOTE | 2017-02-06 10:50 | CP.PCM.PN ---
Subjective - Date & Time of Evaluation Date of Evaluation: 02/06/17 Time of Evaluation: 10:40 - Subjective Subjective: Hospitalist Progress Note (Patient was seen at 10:40 AM 02/06/17 near the PT room ) 76 yo female with history of RA, Osteoporoses and HTN had TKR of the left knee after failing conservative management at [facility] on 01/27/2017. Patient was then transferred to the Acute Rehab Unit at [facility] to continue management and PT/OT. ROS: Right Ear Pain not present at this time Right Hand Finger tips numbness that comes and goes (chronic many years) Left Knee Pain that is controlled: but hesitant to flex the knee secondary to pain, itchiness around bandages Moved her bowels NO other complaints Exam: HEENT: NCA, EOMI, PERRLA, NO cervical lymphadenopathy, NO thyromegaly, NO Pharyngeal erythema/exudate, Oral Mucosa and Nasal Turbinates are moist, Bilateral TM are intact but sclerotic and without good light reflex and they are not bulging/not erythematous Cardiology: NS1 and NS2, NO M/R/G Respiratory: CTA B/L, NO R/R/W GI: BSx4, Soft, NT, ND, NO HSM, NO guarding/rebound tenderness Ext: Pulses are strong and equal, Capillary Refill is 2 seconds, NO edema, Able to move toes of bilateral feet with sensation intact, Unable to examine surgical incision on Left Knee as Nurse as Ortho Dr. Hernandez did not want bandages removed. Blanchable erythema around left knee bandage site inferior to the left knee (NO warmth, NO tenderness to palpation): I do not feel that this is cellulitis (patient has been scratching this area and then I noted that patient has been rubbing this area with both hands up and down during my time on the floor passing by her on my way to see other patients) Neurology: CN II through XII are grossly intact Assessment and Plan: 1). S/P Left Knee Replacement POD #[address] Hernandez Tylenol 650 mg PO Q6H PRN Severe Pain Tylenol 325 mg PO Q6H PRN Moderate Pain Celebrex 200 mg PO 1x/day Neurontin 300 mg PO 2x/day Oxycodone XR 10 mg PO Q12H 2). Hx HTN HCTZ 12. 5 mg PO 1x/day Cozaar 50 mg PO 1x/day 3). Prophylactic Measure Vitamin C 500 mg PO 1x/day Colace 100 mg PO TID [facility] 1 tab P:O 1x/day Protonix 40 mg PO 1x/day Senokot 17.2 mg PO QHS Hydrocortisone 2.5 % Topical 2x/day to the left knee bandage periphery Alirio Benz D.O. Objective - Vital Signs/Intake and Output Vital Signs (last 24 hours): Temp Pulse Resp BP Pulse Ox 96.0 F L 65 18 128/68 95 02/05/17 20:10 02/06/17 08:50 02/05/17 20:10 02/06/17 08:50 02/05/17 20:10 - Medications Medications: Current Medications Acetaminophen (Tylenol 325mg Tab) 650 mg PO Q6 PRN PRN Reason: Pain, severe (8-10) Last Admin: 02/05/17 12:02 Dose: 650 mg Acetaminophen (Tylenol 325mg Tab) 325 mg PO Q6 PRN PRN Reason: Pain, moderate (4-7) Last Admin: 02/03/17 04:51 Dose: 325 mg Ascorbic Acid (Vitamin C 500 Mg Tab) 500 mg PO ONCE [facility] Aspirin (Aspirin) 325 mg PO DAILY [facility] Last Admin: 02/06/17 08:50 Dose: 325 mg Celecoxib (Celebrex) 200 mg PO DAILY [facility] Last Admin: 02/06/17 08:49 Dose: 200 mg Docusate Sodium (Colace) 100 mg PO TID [facility] Last Admin: 02/06/17 08:50 Dose: 100 mg Gabapentin (Neurontin) 300 mg PO BIDPC [facility] Last Admin: 02/06/17 08:51 Dose: 300 mg Home Med (Calcium/Vit B12/Fa/Pyridoxine [Folic Acid-Vit B6-Vit B12 Tab]) 1 each PO ONCE [facility] Hydrochlorothiazide (Microzide) 12.5 mg PO DAILY [facility] Last Admin: 02/06/17 08:50 Dose: 12.5 mg Losartan Potassium (Cozaar) 50 mg PO DAILY [facility] Last Admin: 02/06/17 08:50 Dose: 50 mg Multivitamins/Minerals (Therapeutic-M Tab) 1 tab PO DAILY [facility] Last Admin: 02/06/17 08:51 Dose: 1 tab Oxycodone HCl (Oxycontin Extended Release Tab) 10 mg PO Q12 [facility] Stop: 02/08/17 21:01 Last Admin: 02/06/17 08:57 Dose: 10 mg Pantoprazole Sodium (Protonix Ec Tab) 40 mg PO DAILY [facility] Last Admin: 02/06/17 08:51 Dose: 40 mg Povidone Iodine (Betadine 10% Topical Soln) 1 ml TOP DAILY [facility] Last Admin: 02/06/17 08:49 Dose: 1 applic Sennosides (Senokot Tab) 17.2 mg PO HS [facility] Last Admin: 02/05/17 21:05 Dose: 17.2 mg - Labs Labs: 02/03/17 05:00 02/03/17 05:00
--- NOTE | 2017-02-06 13:47 | CP.PCM.PN ---
Subjective - Date & Time of Evaluation Date of Evaluation: 02/06/17 Time of Evaluation: 10:00 - Subjective Subjective: no acute complaints of knee pain , mild discomfort Objective - Vital Signs/Intake and Output Vital Signs (last 24 hours): Temp Pulse Resp BP Pulse Ox 96.0 F L 65 18 128/68 95 02/05/17 20:10 02/06/17 08:50 02/05/17 20:10 02/06/17 08:50 02/05/17 20:10 - Medications Medications: Current Medications Acetaminophen (Tylenol 325mg Tab) 650 mg PO Q6 PRN PRN Reason: Pain, severe (8-10) Last Admin: 02/05/17 12:02 Dose: 650 mg Acetaminophen (Tylenol 325mg Tab) 325 mg PO Q6 PRN PRN Reason: Pain, moderate (4-7) Last Admin: 02/03/17 04:51 Dose: 325 mg Ascorbic Acid (Vitamin C 500 Mg Tab) 500 mg PO ONCE [facility] Aspirin (Aspirin) 325 mg PO DAILY [facility] Last Admin: 02/06/17 08:50 Dose: 325 mg Celecoxib (Celebrex) 200 mg PO DAILY [facility] Last Admin: 02/06/17 08:49 Dose: 200 mg Docusate Sodium (Colace) 100 mg PO TID [facility] Last Admin: 02/06/17 08:50 Dose: 100 mg [facility] Last Admin: 02/06/17 08:51 Dose: 300 mg Hydrochlorothiazide (Microzide) 12.5 mg PO DAILY [facility] Last Admin: 02/06/17 08:50 Dose: 12.5 mg Hydrocortisone (Hydrocortisone 2.5%) 1 applic TOP BID [facility] Losartan Potassium (Cozaar) 50 mg PO DAILY [facility] Last Admin: 02/06/17 08:50 Dose: 50 mg Multivitamins/Minerals (Therapeutic-M Tab) 1 tab PO DAILY [facility] Last Admin: 02/06/17 08:51 Dose: 1 tab Oxycodone HCl (Oxycontin Extended Release Tab) 10 mg PO Q12 [facility] Stop: 02/08/17 21:01 Last Admin: 02/06/17 08:57 Dose: 10 mg Pantoprazole Sodium (Protonix Ec Tab) 40 mg PO DAILY [facility] Last Admin: 02/06/17 08:51 Dose: 40 mg Povidone Iodine (Betadine 10% Topical Soln) 1 ml TOP DAILY [facility] Last Admin: 02/06/17 08:49 Dose: 1 applic Sennosides (Senokot Tab) 17.2 mg PO HS [facility] Last Admin: 02/05/17 21:05 Dose: 17.2 mg - Labs Labs: 02/03/17 05:00 02/03/17 05:00 - Head Exam Head Exam: ATRAUMATIC, NORMAL INSPECTION, NORMOCEPHALIC - Eye Exam Eye Exam: EOMI, Normal appearance, PERRL Pupil Exam: NORMAL ACCOMODATION - ENT Exam ENT Exam: Mucous Membranes Moist, Normal Exam - Respiratory Exam Respiratory Exam: NORMAL BREATHING PATTERN - Cardiovascular Exam Cardiovascular Exam: REGULAR RHYTHM - GI/Abdominal Exam GI & Abdominal Exam: Normal Bowel Sounds - Rectal Exam Rectal Exam: NORMAL INSPECTION - Exam External exam: NORMAL EXTERNAL EXAM - Extremities Exam Extremities Exam: Full ROM, Normal Capillary Refill - Back Exam Back Exam: NORMAL INSPECTION - Neurological Exam Neurological Exam: Alert, Awake Neuro motor strength exam: Left Upper Extremity: 4, Right Upper Extremity: 4, Left Lower Extremity: 3, Right Lower Extremity: 4 - Psychiatric Exam Psychiatric exam: Normal Affect, Normal Mood - Skin Skin Exam: Dry, Intact Assessment and Plan (1) HTN (hypertension) Status: Acute (2) Status post total knee replacement, left Assessment & Plan: plan for physical, occupational and rec therapy improve knee rom and quad exercises Status: Acute
[2017-02-07] MEDS: Pantoprazole 40 mg EC Tab PO SCH (08:48)
[2017-02-07] MEDS: Povidone Iodine Topical 10% Sol TOP SCH (08:48)
[2017-02-07] MEDS: Multivitamin With Minerals Tab PO SCH (08:49)
[2017-02-07] MEDS: oxyCODONE 10 mg ER Tab (oxyCONTIN) PO SCH ×2 (08:58→21:47)
--- NOTE | 2017-02-07 21:06 | CP.PCM.PN ---
Subjective - Date & Time of Evaluation Date of Evaluation: 02/07/17 Time of Evaluation: 15:00 - Subjective Subjective: patient with no acute knee pain Objective - Vital Signs/Intake and Output Vital Signs (last 24 hours): Temp Pulse Resp BP Pulse Ox 97.3 F L 60 20 104/53 L 98 02/07/17 16:05 02/07/17 16:05 02/07/17 16:05 02/07/17 16:05 02/07/17 16:05 - Medications Medications: Current Medications Acetaminophen (Tylenol 325mg Tab) 650 mg PO Q6 PRN PRN Reason: Pain, severe (8-10) Last Admin: 02/05/17 12:02 Dose: 650 mg Acetaminophen (Tylenol 325mg Tab) 325 mg PO Q6 PRN PRN Reason: Pain, moderate (4-7) Last Admin: 02/03/17 04:51 Dose: 325 mg Ascorbic Acid (Vitamin C 500 Mg Tab) 500 mg PO ONCE [facility] Aspirin (Aspirin) 325 mg PO DAILY [facility] Last Admin: 02/07/17 08:48 Dose: 325 mg Celecoxib (Celebrex) 200 mg PO DAILY [facility] Last Admin: 02/07/17 08:49 Dose: 200 mg Docusate Sodium (Colace) 100 mg PO TID [facility] Last Admin: 02/07/17 17:45 Dose: 100 mg Gabapentin (Neurontin) 300 mg PO BIDPC [facility] Last Admin: 02/07/17 17:45 Dose: 300 mg Hydrochlorothiazide (Microzide) 12.5 mg PO DAILY [facility] Last Admin: 02/07/17 08:49 Dose: 12.5 mg Hydrocortisone (Hydrocortisone 2.5%) 1 applic TOP BID [facility] Last Admin: 02/07/17 17:45 Dose: 1 applic Losartan Potassium (Cozaar) 50 mg PO DAILY [facility] Last Admin: 02/07/17 08:47 Dose: 50 mg Multivitamins/Minerals (Therapeutic-M Tab) 1 tab PO DAILY [facility] Last Admin: 02/07/17 08:49 Dose: 1 tab Oxycodone HCl (Oxycontin Extended Release Tab) 10 mg PO Q12 [facility] Stop: 02/08/17 21:01 Last Admin: 02/07/17 08:58 Dose: 10 mg Pantoprazole Sodium (Protonix Ec Tab) 40 mg PO DAILY [facility] Last Admin: 02/07/17 08:48 Dose: 40 mg Povidone Iodine (Betadine 10% Topical Soln) 1 ml TOP DAILY [facility] Last Admin: 02/07/17 08:48 Dose: 1 applic Sennosides (Senokot Tab) 17.2 mg PO HS [facility] Last Admin: 02/06/17 21:31 Dose: 17.2 mg - Labs Labs: 02/03/17 05:00 02/03/17 05:00 - Head Exam Head Exam: ATRAUMATIC, NORMAL INSPECTION, NORMOCEPHALIC - Eye Exam Eye Exam: Normal appearance Pupil Exam: PERRL - ENT Exam ENT Exam: Mucous Membranes Moist, Normal Exam - Neck Exam Neck Exam: Normal Inspection - Respiratory Exam Respiratory Exam: Clear to Ausculation Bilateral, NORMAL BREATHING PATTERN - Cardiovascular Exam Cardiovascular Exam: REGULAR RHYTHM - GI/Abdominal Exam GI & Abdominal Exam: Normal Bowel Sounds - Exam External exam: NORMAL EXTERNAL EXAM - Extremities Exam Extremities Exam: Normal Inspection Additional comments: left knee healing - Back Exam Back Exam: NORMAL INSPECTION - Neurological Exam Neurological Exam: Alert, Awake Neuro motor strength exam: Left Upper Extremity: 4, Right Upper Extremity: 4, Left Lower Extremity: 3, Right Lower Extremity: 4 - Psychiatric Exam Psychiatric exam: Normal Affect, Normal Mood - Skin Skin Exam: Normal Color Assessment and Plan (1) HTN (hypertension) Status: Acute (2) Status post total knee replacement, left Assessment & Plan: continue to work on quadriceps strengthening, ROM physical and occupational therapy. Monitor the skin. Status: Acute
[2017-02-08] MEDS: Povidone Iodine Topical 10% Sol TOP SCH (09:07)
[2017-02-08] MEDS: oxyCODONE 10 mg ER Tab (oxyCONTIN) PO SCH ×2 (09:09→20:00)
[2017-02-08] MEDS: Pantoprazole 40 mg EC Tab PO SCH (09:10)
[2017-02-08] MEDS: Multivitamin With Minerals Tab PO SCH (09:10)
[2017-02-09] MEDS: oxyCODONE 10 mg ER Tab (oxyCONTIN) PO SCH ×2 (08:45→20:03)
[2017-02-09] MEDS: Povidone Iodine Topical 10% Sol TOP SCH (08:47)
[2017-02-09] MEDS: Pantoprazole 40 mg EC Tab PO SCH (08:48)
[2017-02-09] MEDS: Multivitamin With Minerals Tab PO SCH (08:49)
--- NOTE | 2017-02-09 19:11 | CP.PCM.PN ---
Subjective - Date & Time of Evaluation Date of Evaluation: 02/09/17 Time of Evaluation: 15:30 - Subjective Subjective: Pt seen and examined. Denied any complaint Objective - Vital Signs/Intake and Output Vital Signs (last 24 hours): Temp Pulse Resp BP Pulse Ox 97.5 F L 62 19 114/67 100 02/09/17 07:25 02/09/17 08:48 02/09/17 07:25 02/09/17 08:48 02/09/17 07:25 - Medications Medications: Current Medications Acetaminophen (Tylenol 325mg Tab) 650 mg PO Q6 PRN PRN Reason: Pain, severe (8-10) Last Admin: 02/05/17 12:02 Dose: 650 mg Acetaminophen (Tylenol 325mg Tab) 325 mg PO Q6 PRN PRN Reason: Pain, moderate (4-7) Last Admin: 02/03/17 04:51 Dose: 325 mg Ascorbic Acid (Vitamin C 500 Mg Tab) 500 mg PO ONCE [facility] Aspirin (Aspirin) 325 mg PO DAILY [facility] Last Admin: 02/09/17 08:46 Dose: 325 mg Celecoxib (Celebrex) 200 mg PO DAILY [facility] Last Admin: 02/09/17 08:47 Dose: 200 mg Docusate Sodium (Colace) 100 mg PO TID [facility] Last Admin: 02/09/17 17:23 Dose: 100 mg Gabapentin (Neurontin) 300 mg PO BIDPC [facility] Last Admin: 02/09/17 17:24 Dose: 300 mg Hydrochlorothiazide (Microzide) 12.5 mg PO DAILY [facility] Last Admin: 02/09/17 08:48 Dose: 12.5 mg Hydrocortisone (Hydrocortisone 2.5%) 1 applic TOP BID [facility] Last Admin: 02/09/17 17:24 Dose: 1 applic Losartan Potassium (Cozaar) 50 mg PO DAILY [facility] Last Admin: 02/09/17 08:48 Dose: 50 mg Multivitamins/Minerals (Therapeutic-M Tab) 1 tab PO DAILY [facility] Last Admin: 02/09/17 08:49 Dose: 1 tab Oxycodone HCl (Oxycontin Extended Release Tab) 10 mg PO Q12 [facility] Stop: 02/11/17 21:01 Last Admin: 02/09/17 08:45 Dose: 10 mg Pantoprazole Sodium (Protonix Ec Tab) 40 mg PO DAILY [facility] Last Admin: 02/09/17 08:48 Dose: 40 mg Povidone Iodine (Betadine 10% Topical Soln) 1 ml TOP DAILY [facility] Last Admin: 02/09/17 08:47 Dose: Not Given Sennosides (Senokot Tab) 17.2 mg PO HS [facility] Last Admin: 02/08/17 21:56 Dose: 17.2 mg - Labs Labs: 02/03/17 05:00 02/03/17 05:00 - Constitutional Appears: No Acute Distress - Head Exam Head Exam: ATRAUMATIC - Eye Exam Eye Exam: absent: Scleral icterus - ENT Exam ENT Exam: Mucous Membranes Moist - Neck Exam Neck Exam: absent: Meningismus - Respiratory Exam Respiratory Exam: absent: Rhonchi, Wheezes, Respiratory Distress - Cardiovascular Exam Cardiovascular Exam: REGULAR RHYTHM, +S1, +S2 - GI/Abdominal Exam GI & Abdominal Exam: Soft. absent: Tenderness - Rectal Exam Rectal Exam: Deferred - Extremities Exam Extremities Exam: Joint Swelling (slight swelling of both knees) - Neurological Exam Neurological Exam: Alert, Oriented x3 - Psychiatric Exam Psychiatric exam: Normal Affect - Skin Skin Exam: Dry, Intact Assessment and Plan (1) Status post total knee replacement, left Status: Acute (2) HTN (hypertension) Status: Acute - Assessment and Plan (Free Text) Assessment: 76 yo female with history of RA, Osteoporoses and HTN had TKR of the left knee at [facility] on 01/27/2017. Pt was transferred to acute rehab to continue management and PT (1) Status post total knee replacement, left orthopedist prefer ASA 325mg PO daily for DVT prophylaxis Oxycodone XR 10mg PO q 12hrs Gabapentin 300mg PO BID Celebrex 200mg PO daily continue PT/OT (2) HTN (hypertension) BP stable continue HCTZ and Losartan
[2017-02-09 20:39] VITALS: RESP 20
[2017-02-10] MEDS: Povidone Iodine Topical 10% Sol TOP SCH (08:55)
[2017-02-10] MEDS: Multivitamin With Minerals Tab PO SCH (08:57)
[2017-02-10] MEDS: oxyCODONE 10 mg ER Tab (oxyCONTIN) PO SCH ×2 (08:57→21:34)
[2017-02-10] MEDS: Pantoprazole 40 mg EC Tab PO SCH (08:57)
--- NOTE | 2017-02-10 13:56 | CP.PCM.PN ---
Subjective - Date & Time of Evaluation Date of Evaluation: 02/10/17 Time of Evaluation: 09:00 - Subjective Subjective: patient with no acute complaints of knee pain mild discomfort Objective - Vital Signs/Intake and Output Vital Signs (last 24 hours): Temp Pulse Resp BP Pulse Ox 97.5 F L 76 20 110/56 L 99 02/10/17 08:57 02/10/17 11:47 02/10/17 08:57 02/10/17 08:57 02/10/17 11:47 - Medications Medications: Current Medications Acetaminophen (Tylenol 325mg Tab) 650 mg PO Q6 PRN PRN Reason: Pain, severe (8-10) Last Admin: 02/05/17 12:02 Dose: 650 mg Acetaminophen (Tylenol 325mg Tab) 325 mg PO Q6 PRN PRN Reason: Pain, moderate (4-7) Last Admin: 02/03/17 04:51 Dose: 325 mg Ascorbic Acid (Vitamin C 500 Mg Tab) 500 mg PO ONCE [facility] Aspirin (Aspirin) 325 mg PO DAILY [facility] Last Admin: 02/10/17 08:55 Dose: 325 mg Celecoxib (Celebrex) 200 mg PO DAILY [facility] Last Admin: 02/10/17 08:56 Dose: 200 mg Docusate Sodium (Colace) 100 mg PO TID [facility] Last Admin: 02/10/17 13:27 Dose: 100 mg Gabapentin (Neurontin) 300 mg PO BIDPC [facility] Last Admin: 02/10/17 08:57 Dose: 300 mg Hydrochlorothiazide (Microzide) 12.5 mg PO DAILY [facility] Last Admin: 02/10/17 08:57 Dose: 12.5 mg Hydrocortisone (Hydrocortisone 2.5%) 1 applic TOP BID [facility] Last Admin: 02/10/17 08:56 Dose: 1 applic Losartan Potassium (Cozaar) 50 mg PO DAILY [facility] Last Admin: 02/10/17 08:56 Dose: 50 mg Multivitamins/Minerals (Therapeutic-M Tab) 1 tab PO DAILY [facility] Last Admin: 02/10/17 08:57 Dose: 1 tab Oxycodone HCl (Oxycontin Extended Release Tab) 10 mg PO Q12 [facility] Stop: 02/11/17 21:01 Last Admin: 02/10/17 08:57 Dose: 10 mg Pantoprazole Sodium (Protonix Ec Tab) 40 mg PO DAILY [facility] Last Admin: 02/10/17 08:57 Dose: 40 mg Povidone Iodine (Betadine 10% Topical Soln) 1 ml TOP DAILY [facility] Last Admin: 02/10/17 08:55 Dose: Not Given Sennosides (Senokot Tab) 17.2 mg PO HS [facility] Last Admin: 02/09/17 21:03 Dose: 17.2 mg - Labs Labs: 02/03/17 05:00 02/03/17 05:00 - Head Exam Head Exam: ATRAUMATIC, NORMAL INSPECTION, NORMOCEPHALIC - Eye Exam Eye Exam: EOMI, Normal appearance, PERRL Pupil Exam: NORMAL ACCOMODATION - ENT Exam ENT Exam: Mucous Membranes Moist, Normal Exam - Respiratory Exam Respiratory Exam: NORMAL BREATHING PATTERN - Cardiovascular Exam Cardiovascular Exam: REGULAR RHYTHM - GI/Abdominal Exam GI & Abdominal Exam: Normal Bowel Sounds - Exam External exam: NORMAL EXTERNAL EXAM - Extremities Exam Extremities Exam: Normal Capillary Refill, Normal Inspection - Back Exam Back Exam: NORMAL INSPECTION - Neurological Exam Neurological Exam: Alert, Awake Neuro motor strength exam: Left Upper Extremity: 4, Right Upper Extremity: 4, Left Lower Extremity: 3, Right Lower Extremity: 4 - Psychiatric Exam Psychiatric exam: Normal Affect, Normal Mood - Skin Skin Exam: Dry, Intact Assessment and Plan (1) Status post total knee replacement, left Assessment & Plan: plan for physical, occupational and rec therapy team conference for [facility] for am equipment given to patient Status: Acute (2) HTN (hypertension) Status: Acute
[2017-02-11 08:33] VITALS: BP 110/70; PULSE 66; TEMP 98.3; O2SAT 97
[2017-02-11] MEDS: Povidone Iodine Topical 10% Sol TOP SCH (08:45)
[2017-02-11] MEDS: oxyCODONE 10 mg ER Tab (oxyCONTIN) PO SCH (08:46)
[2017-02-11] MEDS: Pantoprazole 40 mg EC Tab PO SCH (08:46)
[2017-02-11] MEDS: Multivitamin With Minerals Tab PO SCH (08:47)
--- NOTE | 2017-02-11 11:10 | CP.PCM.DIS ---
Provider - Provider Date of Admission: 01/30/17 18:17 Attending physician: Darek Devi MD Consults: Dr Alvarado Time Spent in preparation of Discharge (in minutes): 30 Diagnosis - Discharge Diagnosis (1) Status post total knee replacement, left Status: Acute Comment: Patient had PT and did well. (2) HTN (hypertension) Status: Acute Comment: BP stable. continue HCTZ and Losartan Hospital Course - Lab Results Lab Results: Most Recent Lab Values WBC 11.5 K/uL (4.8-10.8) H 02/03/17 05:00 RBC 3.86 Mil/uL (3.80-5.20) 02/03/17 05:00 Hgb 11.4 g/dL (12.0-16.0) L 02/03/17 05:00 Hct 34.2 % (34.0-47.0) 02/03/17 05:00 MCV 88.7 fl (81.0-99.0) 02/03/17 05:00 MCH 29.5 pg (27.0-31.0) 02/03/17 05:00 MCHC 33.3 g/dL (33.0-37.0) 02/03/17 05:00 RDW 13.6 % (11.5-14.5) 02/03/17 05:00 Plt Count 228 K/uL (130-400) 02/03/17 05:00 MPV 8.9 fl (7.2-11.7) 02/03/17 05:00 Neut % (Auto) 65.5 % (50.0-75.0) 02/03/17 05:00 Lymph % (Auto) 19.6 % (20.0-40.0) L 02/03/17 05:00 [place] % (Auto) 10.8 % (0.0-10.0) H 02/03/17 05:00 Eos % (Auto) 3.3 % (0.0-4.0) 02/03/17 05:00 Baso % (Auto) 0.8 % (0.0-2.0) 02/03/17 05:00 Neut # 7.5 K/uL (1.8-7.0) H 02/03/17 05:00 Lymph # 2.2 K/uL (1.0-4.3) 02/03/17 05:00 [place] # 1.2 K/uL (0.0-0.8) H 02/03/17 05:00 Eos # 0.4 K/uL (0.0-0.7) 02/03/17 05:00 Baso # 0.1 K/uL (0.0-0.2) 02/03/17 05:00 Sodium 136 mmol/l (132-148) 02/03/17 05:00 Potassium 4.1 MMOL/L (3.6-5.0) 02/03/17 05:00 Chloride 101 mmol/L (98-107) 02/03/17 05:00 Carbon Dioxide 27 mmol/L (22-30) 02/03/17 05:00 Anion Gap 13 (10-20) 02/03/17 05:00 BUN 21 mg/dl (7-17) H 02/03/17 05:00 Creatinine 0.6 mg/dL (0.7-1.2) L 02/03/17 05:00 Est GFR ( Amer) > 60 02/03/17 05:00 Est GFR (Non-Af Amer) > 60 02/03/17 05:00 Random Glucose 103 mg/dL (65-105) 02/03/17 05:00 Calcium 8.8 mg/dL (8.4-10.2) 02/03/17 05:00 Phosphorus 3.8 mg/dl (2.5-4.5) 02/03/17 05:00 Magnesium 2.2 MG/DL (1.6-2.3) 02/03/17 05:00 Total Bilirubin 0.6 mg/dl (0.2-1.3) 02/03/17 05:00 AST 37 U/L (14-36) H 02/03/17 05:00 ALT 35 U/L (9-52) 02/03/17 05:00 Alkaline Phosphatase 96 U/L (38-126) 02/03/17 05:00 Total Protein 6.8 G/DL (6.3-8.2) 02/03/17 05:00 Albumin 3.2 g/dL (3.5-5.0) L 02/03/17 05:00 Globulin 3.6 gm/dL (2.2-3.9) 02/03/17 05:00 Albumin/Globulin Ratio 0.9 (1.0-2.1) L 02/03/17 05:00 - Hospital Course Hospital Course: 76 yo female with history of RA, Osteoporoses and HTN had TKR of the left knee at [facility] on 01/27/2017. Pt was transferred and admitted at acute rehab of [facility] to continue management and PT. Patient did well and now is ready for discharge. Discharge Exam - Head Exam Head Exam: ATRAUMATIC, NORMAL INSPECTION, NORMOCEPHALIC - Eye Exam Eye Exam: absent: Scleral icterus - ENT Exam ENT Exam: Mucous Membranes Moist - Respiratory Exam Respiratory Exam: NORMAL BREATHING PATTERN. absent: Wheezes, Respiratory Distress - Cardiovascular Exam Cardiovascular Exam: REGULAR RHYTHM, +S1, +S2 - GI/Abdominal Exam GI & Abdominal Exam: Soft. absent: Tenderness - Rectal Exam Rectal Exam: Deferred - Extremities Exam Extremities exam: joint swelling (slight swelling of both knees) - Neurological Exam Neurological exam: Alert, Oriented x3 - Psychiatric Exam Psychiatric exam: Normal Affect - Skin Skin Exam: Dry, Intact Discharge Plan - Discharge Medications Prescriptions: Celecoxib [celeBREX] 200 mg PO DAILY #15 Gabapentin [Neurontin] 300 mg PO BIDPC #60 cap - Follow Up Plan Condition: GOOD Disposition: HOME/ ROUTINE Instructions: Hydrochlorothiazide (By mouth), Acetaminophen (By mouth), Aspirin (By mouth), Laxative, Stimulant (By mouth), Laxative, Stool Softeners ( By mouth), Multivitamins with Minerals (By mouth), Ascorbic Acid (Vitamin C) ( By mouth), Hydrocortisone (On the skin), Gabapentin (By mouth), Losartan (By mouth), Celecoxib (By mouth), Pantoprazole (By mouth), Oxycodone, Slow Release ( By mouth), Rheumatoid Arthritis (DC), Chronic Hypertension (DC), Revision Total Joint Arthroplasty (DC), Hyperlipidemia (DC) Additional Instructions: Follow up appointments 1. Dr. Hernandez (surgeon) Appt: February 16 at [id number] [address] [place] [address] [id number] [place] Please do not remove left knee dressing until Dr. Hernandez see it
--- NOTE | 2017-02-11 15:05 | CP.PCM.PN ---
Subjective - Date & Time of Evaluation Date of Evaluation: 02/11/17 Time of Evaluation: 10:00 - Subjective Subjective: patinet with no acute knee pain Objective - Vital Signs/Intake and Output Vital Signs (last 24 hours): Temp Pulse Resp BP Pulse Ox 98.3 F 66 20 110/70 97 02/11/17 08:32 02/11/17 08:45 02/11/17 08:32 02/11/17 08:45 02/11/17 08:32 - Labs Labs: 02/03/17 05:00 02/03/17 05:00 - Head Exam Head Exam: ATRAUMATIC, NORMAL INSPECTION, NORMOCEPHALIC - Eye Exam Eye Exam: EOMI, Normal appearance, PERRL Pupil Exam: NORMAL ACCOMODATION - ENT Exam ENT Exam: Mucous Membranes Moist, Normal Exam - Respiratory Exam Respiratory Exam: NORMAL BREATHING PATTERN - Cardiovascular Exam Cardiovascular Exam: REGULAR RHYTHM - GI/Abdominal Exam GI & Abdominal Exam: Normal Bowel Sounds - Rectal Exam Rectal Exam: NORMAL INSPECTION - Exam Bimanual exam: NORMAL BIMANUAL EXAM - Extremities Exam Extremities Exam: Normal Capillary Refill, Normal Inspection - Back Exam Back Exam: NORMAL INSPECTION - Neurological Exam Neurological Exam: Alert, Awake Neuro motor strength exam: Left Upper Extremity: 4, Right Upper Extremity: 4, Left Lower Extremity: 3, Right Lower Extremity: 4 - Psychiatric Exam Psychiatric exam: Normal Affect, Normal Mood - Skin Skin Exam: Dry, Intact, Normal Color Assessment and Plan (1) Status post total knee replacement, left Assessment & Plan: plan for discharge today follow up with ortho doctor and PMD additional services after Dc Status: Acute (2) HTN (hypertension) Status: Acute
--- NOTE | 2017-02-24 14:53 | DS ---
The patient is discharged home. The patient discharged via medical transport. Discharged at a modif ied independent level. The patient to follow up with Dr. Hernandez, the orthopedic physician, and to [facility] visiting nurse and home PT and home health services via the workman's compensation. The huan ent also gets DMEs as well. Recommend new rolling walker as well along with commode for the patient. For occupational therapy, the patient's strength is right side 4, left side 3. ADLs and meal prepara tion: Modified independent. Bathing: Upper body, supervision and set up; lower body supervision an d setup. Functional mobility: Modified independent for the patient. The patient demonstrated impro vement in all functional transfers, ADLs. For recreational therapy, patient also encourage in 1:1 group therapy sessions 3-5 times a week to im prove awareness, attention and arousal. For physical therapy, the patient's mobility for transfers, modified independent; rolling 300 feet; r olling walker, modified independent. Stairs: Supervision, verbal cues. The patient also with home exercise program. The patient also did 4 steps 6 inches with 2 handrails needing min assist. The pa jessy discharged home 02/11/2017. Rupert Gongora MD cc: [id number] TT: 02/24/2017 14:53:06 ak
== END 2017-02-11 12:41 | disposition home health service (06) | DRG 561 ==
PROC: F08Z4FZ Home Management Treatment using Assistive, Adaptive, Supportive or Protective Equipment (ICD-10-PCS; principal; 2017-01-31)
PROC: F07Z9FZ Gait Training/Functional Ambulation Treatment using Assistive, Adaptive, Supportive or Protective Equipment (ICD-10-PCS; 2017-01-31)
PROC: F07L6ZZ Therapeutic Exercise Treatment of Musculoskeletal System - Lower Back / Lower Extremity (ICD-10-PCS; 2017-01-31)
DX: Z47.1 Aftercare following joint replacement surgery (principal); M06.9 Rheumatoid arthritis, unspecified; I10 Essential (primary) hypertension; Z96.652 Presence of left artificial knee joint; M81.0 Age-related osteoporosis without current pathological fracture; E78.5 Hyperlipidemia, unspecified; J34.2 Deviated nasal septum; H92.01 Otalgia, right ear; M26.603 Bilateral temporomandibular joint disorder, unspecified